=== PATIENT | male | born 1970 | race Two or more races ===

== ENCOUNTER 2020-02-09 13:50 | Emergency (ER) | payer SELFPAY ==
--- NOTE | ~2020-02-09 | XR_ITS ---
XR chest 1V portable 02/09/2020 14:55 Indication: Fever and dyspnea Procedure: AP portable chest Comparison: 08/28/2019 Findings: Heart size normal. Chronic left basilar atelectasis/scarring. Right lung clear. No pleural effusion, edema or pneumothorax. Impression: 1: Chronic left basilar atelectasis/scarring. Reviewed, dictated and finalized at location A. Impression: 1: Chronic left basilar atelectasis/scarring.
[2020-02-09 13:51] VITALS: BP 146/73; PULSE 109; RESP 18; TEMP 38.4; O2SAT 97
[2020-02-09 14:31] LABS: Basophils Absolute Auto 0.1 K/mm3 (0.0-0.1); Basophils Percent Auto 0.5 % (0.2-1.2); Eosinophils Absolute Auto 0.1 K/mm3 (0-0.3); Eosinophils Percent Auto 0.4 % (0-4.4); Hematocrit 40.5 % (42.0-52.0); Hemoglobin 14.5 g/dL (14.0-18.0); Immature Granulocyte Absolute 0.07 K/mm3 (0.00-0.031); Immature Granulocyte Percent A 0.6 % (0-0.5); Lymphocytes Absolute Auto 0.86 K/mm3 (0.9-3.2); Lymphocytes Percent Auto 7.2 % (18.3-44.2); Mean Corpuscular HGB Conc 35.8 g/dl (32-36); Mean Corpuscular Volume 86.5 fl (80-100); Mean Platelet Volume 10.7 fl (7.4-10.4); Monocytes Absolute Auto 0.5 K/mm3 (0.1-0.6); Monocytes Percent Auto 4.4 % (2.6-8.5); Neutrophils Absolute Auto 10.5 K/mm3 (1.3-6.7); Neutrophils Percent Auto 86.9 % (45.5-73.1); Platelet Count Result 205 k/mm3 (150-375); Red Blood Count 4.68 M/mm3 (4.6-6.20); Red Cell Distribution Width 11.9 % (11.5-14.5)
--- NOTE | 2020-02-09 14:39 | ED.FEVER ---
HPI - Fever General Chief Complaint: Fever Stated Complaint: fever Time Seen by Provider: 02/09/20 14:16 Source: patient Mode of arrival: ambulatory Limitations: no limitations History of Present Illness HPI Narrative: This patient is a 49 year old male who presents for evaluation of fatigue and fever. Patient states around noon he started not feeling well. He felt tired and warm so he took ibuprofen. He states on his arrival home his felt that he had a fever so he was told to come to ER .. He denies cough, sob, abdominal pain, nausea, vomiting or diarrhea. MD elicited complaint: fever Related Data Home Medications Medication Instructions Recorded Confirmed metformin 500 mg PO BID 02/09/20 Allergies Allergy/AdvReac Type Severity Reaction Status Date / Time No Known Allergies Allergy Verified 02/09/20 14:07 Review of Systems Review of Systems: All systems reviewed & are unremarkable except as noted in HPI and below Constitutional: Constitutional: Reports fatigue and Reports fever(s) ENT: Denies nasal congestion and Denies sore throat Cardiovascular: Cardiovascular: Denies chest pain Respiratory: Respiratory: Denies cough, Denies dyspnea and Denies wheezing Gastrointestinal: Gastrointestinal: Denies abdominal pain, Denies diarrhea, Denies nausea and Denies vomiting Neurologic: Denies dizziness PMFSH Past Medical History Medical History (Updated 02/09/20 @ 17:32 by Kimberlee [place] MD) Diabetes mellitus Social History Social History Gender identity (if verbalized by the patient): Male Exam Narrative: Exam Narrative: GENERAL: Well-appearing, well-nourished, and in no acute distress. HEAD: Normocephalic, atraumatic EYES: PERRLA and EOMI, conjunctiva clear without discharge EARS: TM's clear bilaterally without erythema or dullness NOSE: Nares clear, no rhinorrhea or epistaxis THROAT:Mucous membranes moist, Oropharynx normal without erythema, exudate, peritonsillar swelling or fluctuance NECK: Supple, without lymphadenopathy or mass RESPIRATORY: No respiratory distress, Airway patent, Respirations non-labored, Clear to auscultation without rales, rhonchi or wheeze HEART: Regular rate and rhythm. No murmur heard. Normal peripheral pulses. ABDOMEN: Soft, nontender, nondistended, normal active bowel sounds. No masses. No rebound or guarding, No organomegaly. EXTREMITIES: No edema, normal strength with full range of motion. SKIN: Warm, dry, normal color without rash NEURO: Alert and oriented x3. CN 2-12 grossly intact. No focal deficits. PSYCH: Normal mood and affect. Course Reevaluation(s) Reevaluation #1: Patient is stating the he feels fine. He is ready to be discharge. I discussed with patient he will need to follow up with primary care physician in 2-3 days and he will need to return if he feels bad again. I spoke with his PCP Dr. Calero who agrees to follow up with patient. Patient refuse COVID testing per nurses notes even though it was ordered Date: 02/09/20 Time: 17:30 Vital Signs Vital signs: Vital Signs Temperature 101.1 F H 02/09/20 13:51 Pulse Rate 109 H 02/09/20 13:51 Respiratory Rate 18 02/09/20 13:51 Blood Pressure 146/73 H 02/09/20 13:51 Pulse Oximetry 97 02/09/20 13:51 Temperature 101.1 F H 02/09/20 13:51 Pulse Rate 85 02/09/20 17:50 Respiratory Rate 14 02/09/20 17:50 Blood Pressure 140/90 02/09/20 17:50 Pulse Oximetry 98 02/09/20 17:50 MDM - Fever Lab Data Result diagrams: 02/09/20 14:18 02/09/20 14:18 Labs: Lab Results 02/09/20 02/09/20 02/09/20 Range/Units 14:18 14:18 14:18 WBC 12.0 H (4.5-10.0) K/mm3 RBC 4.68 (4.6-6.20) M/mm3 Hgb 14.5 (14.0-18.0) g/dL Hct 40.5 L (42.0-52.0) % MCV 86.5 (80-100) fl MCH 31.0 (26-34) pg MCHC 35.8 (32-36) g/dl RDW 11.9 (11.5-14.5) % Plt Count 205 (150-375) k/mm3 MPV 10.7 H (7.4-10.4) fl Immature Gra
[2020-02-09 14:43] LABS: Prothrombin Time 12.9 Seconds (11.1-14.7)
[2020-02-09 14:43] LABS: Add Urine Microscopic? YES; Appearance Urine Clear (Clear); Bilirubin Urine Negative (Negative); Blood Urine Negative (Negative); Color Urine Yellow (Yellow); Glucose Urine UA 3+ mg/dL (Negative); Ketones Urine Negative (Negative); Leukocyte Esterase Ur Negative LEU/UL (Negative); Nitrate Urine Negative (Negative); Protein Urine Negative (Negative); Specific Grav Ur 1.025 (1.001-1.035); Urobilinogen Urine Negative mg/dL (<2.0)
[2020-02-09 14:44] LABS: Lactic Acid Reflex 2.5 mmol/L (0.7-2.1); Partial Thromboplastin Time 21.9 SECONDS (22.3-36.8)
[2020-02-09 14:46] LABS: Alanine Aminotransferase 46 U/L (4-50); Albumin Level 4.5 g/dL (3.5-5.1); Alkaline Phosphatase 98 U/L (38-126); Aspartate Amino Transferase 35 U/L (17-59); Bilirubin,Total 1.4 mg/dL (0.2-1.3); Blood Urea Nitrogen 15 mg/dL (9-20); CRP < 0.5 mg/dL (<1.0); Calcium 8.8 mg/dL (8.4-10.2); Carbon Dioxide 23 mmol/L (22-30); Chloride 99 mmol/L (98-107); Estimated CRCL calculation 99 ml/min; Estimated Glomerular Filt Rate > 60; Glucose 305 mg/dL (75-110); Sodium 132 mmol/L (137-145)
[2020-02-09] MEDS: LACTATED RINGERS 1,000 ML 999 ML IV CONT (14:51)
[2020-02-09 15:28] VITALS: BP 117/78; PULSE 84; RESP 20; O2SAT 98
[2020-02-09 17:27] LABS: Reflex Lactic Acid Yes or No Add Lactic
--- NOTE | 2020-02-09 17:49 | PC.NURSE ---
Pt declined COVID test, states I dont have COVID19 and ambulated out.
[2020-02-09 17:50] VITALS: BP 140/90; PULSE 85; RESP 14; O2SAT 98
== END 2020-02-09 17:52 | disposition home or self-care (01) ==
PROVIDERS: Emergency Provider General Practice; PCP Family Medicine
DX: R50.9 Fever, unspecified (principal); E11.9 Type 2 diabetes mellitus without complications; Z79.84 Long term (current) use of oral hypoglycemic drugs
CPT/HCPCS: 36415; 71045; 80053; 81001; 83605; 85025; 85610; 85730; 86140; 87040; 87081; 87804; 87880; 96361; 96374; 99284; J0131; J7120

== ENCOUNTER 2020-11-13 09:03 | Outpatient (CLI) | payer OTHER, SELFPAY | END 2020-11-13 09:04 | disposition home or self-care (01) | LOC: ANHCOVIDVC 09:03 | PROVIDERS: PCP Family Medicine | DX: Z23 Encounter for immunization (principal) | CPT/HCPCS: 0001A; 91300 ==

== ENCOUNTER 2020-12-04 08:57 | Outpatient (CLI) | payer OTHER, SELFPAY | END 2020-12-04 08:58 | PROVIDERS: PCP Family Medicine | DX: Z23 Encounter for immunization (principal) | CPT/HCPCS: 0002A; 91300 ==

== ENCOUNTER → 2023-05-15 11:19 | Outpatient (CLI) | payer SELFPAY ==
--- NOTE | ~2023-05-15 | XR_ITS ---
AP view of the pelvis Clinical history: Pain Findings: No acute fracture or dislocation is seen. Osseous alignment is anatomic. Bilateral hip and SI joint spaces are preserved. Soft tissues are unremarkable. Impression: No significant abnormality is seen. Reviewed, dictated and finalized at location M. Impression: No significant abnormality is seen.
--- NOTE | ~2023-05-15 | XR_ITS ---
Lumbosacral Spine: AP and lateral views Clinical History: Pain Findings: The normal lordotic curve is maintained. The vertebral bodies and posterior elements are i ntact. There is moderate degenerative disc narrowing at L5-S1. There is mild facet arthropathy at L4- L5 and L5-S1. The sacroiliac joints are normally outlined. Impression: Mild degenerative spondylosis, as above. Reviewed, dictated and finalized at location M. Impression: Mild degenerative spondylosis, as above.
== END ==
PROVIDERS: PCP Family Medicine; Visit Provider Family Medicine
DX: M54.50 Low back pain, unspecified (principal); M43.06 Spondylolysis, lumbar region
CPT/HCPCS: 72100; 72170

== ENCOUNTER 2024-06-19 14:08 | Emergency (ER) | payer SELFPAY ==
--- NOTE | ~2024-06-19 | XR_ITS ---
XR chest 2V Ordering provider: Levi Ray MD History: 53 years Male with . LEFT SIDE CHEST PAIN WHEN COUGHING . Comparison: February 09, 2020 FINDINGS: MEDIASTINUM: The cardiac silhouette is not enlarged. LUNGS: No infiltrates, effusions or pneumothorax. Prominent markings in the left lung base medially unchanged. OTHER: No free air under the diaphragm. IMPRESSION: Prominent markings in the left lung base medially unchanged from previous examination Reviewed, dictated and finalized at location A. IMPRESSION: Prominent markings in the left lung base medially unchanged from previous exami nation
--- NOTE | 2024-06-19 14:08 | ECG_ITS ---
Test Date: 2024-06-19 14:14:31 Measurements Intervals [place] Rate: 80 P: 39 ND: 134 QRS: 3 QRSD: 114 T: -22 QT: 368 QTc: 427 Interpretive Statements SINUS RHYTHM MODERATE INTRAVENTRICULAR CONDUCTION DELAY [110+ ms QRS DURATION] MODERATE T-WAVE ABNORMALITY, CONSIDER INFERIOR ISCHEMIA [-0.1+ mV T WAVE IN II/aVF] ABNORMAL ECG No previous ECG available for comparison Electronically Signed On 06-20-2024 10:38:27 CDT by Raghu Harvey M.D.
[2024-06-19 14:11] VITALS: BP 121/84; PULSE 92; RESP 18; TEMP 36.4; O2SAT 98
[2024-06-19 14:28] LABS: Basophils Absolute Auto 0.1 K/mm3 (0.0-0.1); Basophils Percent Auto 1.1 % (0.2-1.2); Eosinophils Absolute Auto 0.6 K/mm3 (0-0.3); Eosinophils Percent Auto 6.6 % (0-4.4); Hematocrit 40.5 % (42.0-52.0); Hemoglobin 14.5 g/dL (14.0-18.0); Immature Granulocyte Absolute 0.02 K/mm3 (0.00-0.031); Immature Granulocyte Percent A 0.2 % (0-0.5); Lymphocytes Percent Auto 33.8 % (18.3-44.2); Mean Corpuscular HGB Conc 35.8 g/dl (32-36); Mean Corpuscular Hemoglobin 31.5 pg (26-34); Mean Platelet Volume 10.4 fl (7.4-10.4); Monocytes Absolute Auto 0.7 K/mm3 (0.1-0.6); Monocytes Percent Auto 8.6 % (2.6-8.5); Neutrophils Absolute Auto 4.1 K/mm3 (1.3-6.7); Neutrophils Percent Auto 49.7 % (45.5-73.1); Platelet Count Result 283 k/mm3 (150-375); Red Cell Distribution Width 11.2 % (11.5-14.5); White Blood Count 8.3 K/mm3 (4.5-10.0)
[2024-06-19 14:39] LABS: INR 0.9; Partial Thromboplastin Time 24.9 Seconds (22.3-36.8); Prothrombin Time 12.9 Seconds (11.1-14.7)
[2024-06-19 15:05] LABS: Alanine Aminotransferase 35 U/L (6-50); Albumin Level 4.7 g/dL (3.5-5.1); Alkaline Phosphatase 66 U/L (38-126); Anion Gap 12 mmol/L (4-12); Aspartate Amino Transferase 40 U/L (17-59); Bilirubin,Total 1.5 mg/dL (0.2-1.3); Blood Urea Nitrogen 13 mg/dL (9-20); Calcium 8.8 mg/dL (8.4-10.2); Carbon Dioxide 23 mmol/L (22-30); Chloride 101 mmol/L (98-107); Estimated CRCL calculation 95 ml/min; Estimated Glomerular Filt Rate > 60; Glucose 300 mg/dL (65-110); Lipase 130 U/L (23-300); Potassium 4.3 mmol/L (3.4-5.0); Sodium 136 mmol/L (137-145)
[2024-06-19 15:18] LABS: Troponin I < 0.012 ng/mL (0.000-0.034)
--- NOTE | 2024-06-19 15:49 | ED.CHESTPAIN ---
HPI - Chest Pain General Chief Complaint: Chest Pain Stated Complaint: chest pain Time Seen by Provider: 06/19/24 15:46 Source: patient Mode of arrival: ambulatory Limitations: no limitations History of Present Illness HPI narrative: 53 YEARS OLD WHITE MALE CAME TO THE ED BY PRIVATE CAR COMPLAINING OF LEFT CHEST SHARP STABBING PAIN, WORSE WITH COUGHING, DEEP BREATHING, CERTAIN MOVEMENT AND CERTAIN POSITION. STARTED 4-5 DAYS AGO, HE REPORTS PRODUCTIVE COUGH OF CLEAR SPUTUM, SORE THROAT AND NASAL CONGESTION. PATIENT DENIES RADIATION OF PAIN HISTORY OF DIABETES AND ALLERGIC SINUSITIS. PATIENT DOES NOT SMOKE OR DRINK OR USE DRUGS. NO FAMILY HISTORY OF CORONARY ARTERY DISEASE. Related Data Home Medications Medication Instructions Recorded Confirmed metformin 1,000 mg tablet 1,000 mg PO HS 08/28/19 08/28/19 metformin 500 mg tablet 500 mg PO BID 02/09/20 Allergies Allergy/AdvReac Type Severity Reaction Status Date / Time No Known Allergies Allergy Unverified 09/03/21 15:05 Review of Systems Review of Systems: All systems reviewed & are unremarkable except as noted in HPI and below PMFSH Past Medical History Medical History (Updated 06/19/24 @ 17:18 by Kali Castrejon MD) Diabetes mellitus GERD (gastroesophageal reflux disease) Hepatic steatosis Noted on imaging 08/28/2019. Type 2 diabetes mellitus Surgical History Surgical History Status post cholecystectomy Family History Family History Other Heart disease Social History Social History Social History: The patient lives in [place] with his . Have 3 children. He is originally from [place]. He works is an licensed insurance agent. He designates his , Becca, as his surrogate decision-maker and he wishes to be a full code. He is a lifelong non-smoker. He drinks perhaps 1 alcoholic drink a day. No drug use. Gender identity (if verbalized by the patient): Male Exam Narrative: GENERAL APPEARANCE: WELL-DEVELOPED, WELL-NOURISHED SKIN: NORMAL COLOR HEAD: NORMOCEPHALIC, NONTRAUMATIC EYES: CLEAR CONJUNCTIVA ENT: OROPHARYNX NORMAL, EARS NORMAL, NOSE NORMAL NECK: SUPPLE, NONTENDER CHEST AND RESPIRATORY: AIRWAY PATENT, NO RESPIRATORY DISTRESS, NO ACCESSORY MUSCLE USE SEVERE LOCALIZED TENDERNESS AT LEFT CHEST WITH LIGHT PALPATION HEART: REGULAR RATE/RHYTHM ABDOMEN: SOFT, NONTENDER, NO ORGANOMEGALY, QUIET BOWEL SOUNDS VASCULAR: NORMAL PERIPHERAL PULSES, NORMAL CAPILLARY REFILL. 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, NO GROSS MOTOR DEFICIT Course Vital Signs Vital signs: Vital Signs Temperature 36.4 C 06/19/24 14:11 Pulse Rate 92 06/19/24 14:11 Respiratory Rate 18 06/19/24 14:11 Blood Pressure 121/84 06/19/24 14:11 Pulse Oximetry 98 06/19/24 14:11 Oxygen Delivery Room Air 06/19/24 14:11 Temperature 36.4 C 06/19/24 14:11 Pulse Rate 92 06/19/24 14:11 Respiratory Rate 18 06/19/24 14:11 Blood Pressure 121/84 06/19/24 14:11 Pulse Oximetry 98 06/19/24 14:11 Oxygen Delivery Room Air 06/19/24 14:11 MDM - Chest Pain MDM Narrative Medical decision making narrative: PATIENT CAME WITH SHARP STABBING LEFT CHEST PAIN WORSE WITH COUGHING AND MOVEMENT VITAL SIGNS ARE STABLE PHYSICAL EXAMINATION CONSISTENT WITH LEFT CHEST WALL TENDERNESS, COSTOCHONDRITIS DIFFERENTIAL DIAGNOSIS INCLUDE CHEST WALL STRAIN/ SPRAIN, COSTOCHONDRITIS, PNEUMONIA, PLEURISY LESS LIKELY CORONARY DISEASE, BLOOD WORKUP SH
[2024-06-19 16:48] LABS: Influenza A QL RT-PCR Negative (Negative); Influenza B QL RT-PCR Negative (Negative); RSV RNA, RT-PCR Negative (Negative); SARS-CoV-2 RNA PCR Negative (Negative)
--- NOTE | 2024-06-19 16:56 | ECG_ITS ---
Test Date: 2024-06-19 17:02:15 Measurements Intervals [place] Rate: 66 P: 44 HI: 143 QRS: 1 QRSD: 106 T: -20 QT: 372 QTc: 391 Interpretive Statements SINUS RHYTHM T-WAVE ABNORMALITY, CONSIDER INFERIOR ISCHEMIA ABNORMAL ECG Electronically Signed On 06-20-2024 10:40:24 CDT by Raghu Harvey M.D.
[2024-06-19] MEDS: ASPIRIN 81 MG CHEWABLE TABLET 324 MG PO (16:58)
[2024-06-19] MEDS: KETOROLAC 30 MG/ML VIAL (*BKC) IV PUSH (16:59)
[2024-06-19 17:00] VITALS: BP 114/70; PULSE 66; PULSE 68; RESP 18; O2SAT 97
[2024-06-19 17:38] LABS: Troponin I < 0.012 ng/mL (0.000-0.034)
== END 2024-06-19 17:38 | disposition home or self-care (01) ==
PROVIDERS: Emergency Medicine; Emergency Provider Emergency Medicine
DX: J06.9 Acute upper respiratory infection, unspecified (principal); R07.89 Other chest pain; Z20.822 Contact with and (suspected) exposure to COVID-19; E11.9 Type 2 diabetes mellitus without complications; K21.9 Gastro-esophageal reflux disease without esophagitis; Z90.49 Acquired absence of other specified parts of digestive tract; I45.9 Conduction disorder, unspecified; R94.31 Abnormal electrocardiogram [ECG] [EKG]; Z79.82 Long term (current) use of aspirin; Z79.84 Long term (current) use of oral hypoglycemic drugs
CPT/HCPCS: 36415; 71046; 80053; 83690; 84484; 85025; 85610; 85730; 87637; 93005; 96374; 99284; A9270; J1885